=== PATIENT | female | born 1930 | race Caucasian/White ===

== ENCOUNTER → 2016-11-20 | Outpatient (CLI) | payer OTHER, BC ==
[~2016-11-20] MED LIST: ACET325T96 PO; CLOP1TAB15 PO; CRAN1CAP14 PO; DIPH25CA65 PO; DONE1TAB26 PO; FLUT0.15 NAE; HYDR1CRE TOP; IMD/2 PO; LEVO1TAB33 PO; LXP/10 PO; MOML PO; MULTTAB66 PO; OMEG10007 PO; ONDA4TAB9 PO; PANT1TAB3 PO; POLYSOL4 OP; SULF20PO; TAMS0.4C38 PO
== END ==
LOC: C.LABFOXDH 17:16
PROVIDERS: ATTEND Internal Medicine
DX: N39.0 Urinary tract infection, site not specified (principal)

== ENCOUNTER → 2016-12-12 | Outpatient (CLI) | payer OTHER, BC ==
[~2016-12-12] MED LIST changes: -PANT1TAB3 PO; +PANT1TAB48 PO
--- NOTE | 2016-12-15 13:37 | EEG Procedure Note ---
EEG Procedure Note Date of Service Dec 12, 2016. Start / End Times Start Time: 9:18 AM End Time: 9:38 AM Referring Physician Darren Cantrell History This is a 86-year-old female with a near syncopal episode. EEG for further evaluation of possible seizure etiology. Home Medication List Scheduled Acetaminophen Tab (Tylenol), 650 MG PO QID Clopidogrel (Plavix), 75 MG PO DAILY Cranberry-Vitamin C-Vitamin E (Cranberry Plus Vitamin C), 1 CAP PO BID Donepezil Hydrochloride (Donepezil Hcl), 10 MG PO DAILY Escitalopram Oxalate (Lexapro), 10 MG PO DAILY Fish Oil ([place]-3), 1,000 MG PO DAILY Fluticasone Propionate (Nasal) (Flonase Allergy Relief), 2 SPRAY [place] DAILY Levofloxacin (Levaquin), 500 MG PO DAILY Multiple Vitamins W/ Minerals (I-Valarie), 1 TAB PO BID Pantoprazole (Protonix), 40 MG PO DAILY Tamsulosin Hcl (Flomax), 0.4 MG PO DAILY Scheduled PRN Diphenhydramine Hcl (Benadryl Allergy), 25 MG PO Q6H PRN for Itching Hydrocortisone (Rectal) (Hydrocortisone), 1 APPLN TOP BID PRN for Itching Loperamide Hcl (Imodium), 2 MG PO Q4 PRN for Diarrhea Magnesium Hydroxide (Milk Of Magnesia), 30 ML PO DAILY PRN for Constipation Ondansetron (Ondansetron HCl), 4 MG PO Q6H PRN for Nausea Polyethylene Glycol-Propylene (Systane), 1 DROPS OP QID PRN for eye irritation Miscellaneous Medications Sulfamethoxazole (Sulfamethoxazole), Unknown Dose Description This is a 21 electrode EEG with a single channel dedicated to limited EKG. The electrodes were placed in accordance with the International 10-20 system. At the start of the recording the patient was in an awake state. Background was poorly organized with a poorly formed anterior to posterior gradient. Background was composed of symmetric mixed theta/alpha and beta frequencies. There was a symmetric well-formed moderate amplitude 6-7 Hz posterior dominant rhythm that was reactive to eye opening and closure. Hyperventilation was not done. Intermittent photic stimulation at various frequencies produced no abnormalities. There was no state changes or sleep transients. Interpretation This is an abnormal routine EEG secondary to mild background slowing. There was no electrographic seizures or epileptiform discharges. Clinical Correlation This EEG indicates a mild encephalopathy of nonspecific etiology.
--- NOTE | 2016-12-19 09:08 | CODING QUERY NO DIAGNOSIS ---
TREATMENT RENDERED WITHOUT A DIAGNOSIS To promote full compliance with coding requirements relating to patient care, physician participation is requested in all cases of nutrition partner uncertainty. Please assist us with providing a diagnosis/symptom for the test(s) below: A diagnosis/symptom was not documented on your Order. A valid diagnosis/symptom is required to bill all insurances. Please remember that we are unable to code a diagnosis of rule out, probable, possible, questionable, or suspected. Tests that require a diagnosis: DOS: 12/12/16 * EEG DIAGNOSIS: Provider Signature: Date: Thank you Tay[facility] Information Management Once completed, please kindly fax back to [phone] For questions please call [phone]
== END | disposition home or self-care (01) ==
LOC: C.NEUR 08:53
PROVIDERS: ATTEND Internal Medicine
DX: R44.3 Hallucinations, unspecified (principal)

== ENCOUNTER → 2017-01-05 | Outpatient (CLI) | payer OTHER, BC | END | disposition home or self-care (01) | LOC: C.LABSPEC 17:31 | PROVIDERS: ATTEND Nurse Practitioner Family | DX: N39.0 Urinary tract infection, site not specified (principal) ==

== ENCOUNTER → 2017-03-30 | Outpatient (CLI) | payer OTHER, BC ==
[2017-03-30 16:24] LABS: URINE APPEARANCE TURBID (CLEAR); URINE BILIRUBIN NEG (NEG); URINE COLOR YELLOW; URINE EPITHELIAL CELL AUTO >30 /lpf (0-5); URINE NITRITE NEG (NEG); URINE PH 5.5 (4.5-7.5); UROBILINOGEN NEG (NEG)
[2017-03-30 16:30] LABS: MANUAL MICROSCOPIC REQUIRED? NO; REVIEW REQ? YES
== END | disposition home or self-care (01) ==
LOC: C.LABOUTLO 16:05
PROVIDERS: ATTEND Nurse Practitioner Family
DX: Z01.89 Encounter for other specified special examinations (principal)

== ENCOUNTER → 2017-04-28 | Outpatient (CLI) | payer OTHER, BC | END | disposition home or self-care (01) | LOC: C.PATHSPEC 19:07 | PROVIDERS: ATTEND Plastic Surgery | DX: L98.9 Disorder of the skin and subcutaneous tissue, unspecified (principal) ==

== ENCOUNTER → 2017-05-07 | Outpatient (CLI) | payer OTHER, BC ==
[2017-05-07 10:57] LABS: URINE APPEARANCE TURBID (CLEAR); URINE BILIRUBIN NEG (NEG); URINE COLOR YELLOW; URINE EPITHELIAL CELL AUTO >30 /lpf (0-5); URINE NITRITE POS (NEG); URINE PH 5.5 (4.5-7.5); URINE SPECIFIC GRAVITY 1.025 (1.000-1.030); UROBILINOGEN NEG (NEG)
[2017-05-07 10:58] LABS: REVIEW REQ? NO
[2017-05-07 11:00] LABS: MANUAL MICROSCOPIC REQUIRED? NO
== END | disposition home or self-care (01) ==
LOC: C.LABOUTLO 10:01
PROVIDERS: ATTEND Nurse Practitioner Family
DX: N39.0 Urinary tract infection, site not specified (principal)

== ENCOUNTER → 2017-08-14 | Outpatient (CLI) | payer OTHER, BC ==
--- NOTE | 2017-08-14 12:24 | DIAGNOSTIC IMAGING REPORT ---
ABDOMEN ULTRASOUND FOR HERNIA CLINICAL HISTORY: R22.2 Abdominal wall lump COMPARISON STUDY: Abdomen and pelvis CT 06/03/2015. FINDINGS: There is a fat-containing nonreducible umbilical/supraumbilical hernia. The hernia sac measures 3.4 x 3.3 x 1.5 cm. The neck of the hernia measures approximately 1.6 cm. There is no bowel identified within the hernia sac. IMPRESSION: Fat-containing nonreducible umbilical/supraumbilical hernia. Electronically signed by: Dmitry Ochoa M.D. 08/14/2017 12:22 PM Dictated Date/Time: 08/14/2017 12:21 PM
== END | disposition home or self-care (01) ==
LOC: C.ULTR 11:53
PROVIDERS: ATTEND Physician Assistant
DX: K42.9 Umbilical hernia without obstruction or gangrene (principal)